=== PATIENT | male | born 1965 | race Caucasian/White ===

== ENCOUNTER 2017-05-21 12:29 | Emergency (ER) | payer OTHER ==
[~2017-05-21] VITALS: Ht 177.8 cm; Wt 79.4 kg
[2017-05-21 12:37] VITALS: Ht 177.8 cm; Wt 79.4 kg
[2017-05-21 13:32] LABS: BASOPHIL % 0.4 % (0-2); PLATELET COUNT 235 x10^3mcL (130-400)
[2017-05-21 13:46] LABS: microscopic required? NO
[2017-05-21 13:49] LABS: RED CELL DISTRIBUTION WIDTH 17.7 % (11.5-14.5)
[2017-05-21 13:56] LABS: CARBON DIOXIDE 25.3 mmol/L (21-32); CHLORIDE SERUM 100 mmol/L (98-107); GFR1 > 60 mL/min; GLUCOSE SERUM 94 mg/dL (74-106); POTASSIUM SERUM 3.2 mmol/L (3.5-5.1); SODIUM SERUM 135 mmol/L (136-145)
[2017-05-21 14:00] LABS: urine erythrocyte NEGATIVE (NEGATIVE)
[2017-05-21 14:00] LABS: ALBUMIN 3.4 g/dL (3.4-5.0); ALT/SGPT 15 U/L (16-63); AST/SGOT 21 U/L (15-37); LIPASE 133 IU/L (73-393)
[2017-05-21 14:30] LABS: TOTAL PROTEIN, SERUM 6.7 g/dL (6.4-8.2)
[2017-05-21 14:34] LABS: BILIRUBIN TOTAL 0.5 mg/dL (0.20-1.00)
[2017-05-21 14:35] LABS: ALKALINE PHOSPHATASE 85 U/L (46-116)
[2017-05-21 15:49] VITALS: BP 127/70
== END 2017-05-21 15:49 | disposition home or self-care (01) ==
LOC: ED 12:29
PROVIDERS: Emergency Medicine
DX: R09.89 Other specified symptoms and signs involving the circulatory and respiratory systems (principal); J45.909 Unspecified asthma, uncomplicated
CPT/HCPCS: 87804; J7030; Q0092